=== PATIENT | female | born 1990 | race African-American/Black ===

== ENCOUNTER 2016-05-22 17:17 | Emergency (ER) | payer MEDICAID ==
[~2016-05-22] VITALS: Ht 167.6 cm; Wt 95.5 kg
[2016-05-22 17:19] VITALS: BP 140/80; PULSE 92; RESP 16; TEMP 98.2; O2SAT 98
--- NOTE | 2016-05-22 18:18 | PD ---
HPI Chief Complaint: Cold / Flu Symptoms Time Seen by Provider: 18:10 Travel History International Travel<30 days: No Contact w/Intl Traveler<30days: No Traveled to known affect area: No History of Present Illness HPI 26-year-old female presents for evaluation of cough and congestion and sore throat. Symptoms started 2 weeks ago. The cough is primarily dry but she feels like there is some phlegm stuck in her throat. Denies fevers or chills. No ear pain, recent travel, abdominal pain. She has been using over-the- counter cough and cold medications but symptoms persist. No other complaints at this time. [facility] Past Medical History Medical History: Denies Significant Hx ?: Not LMP: 04/26/2016 Social History Alcohol Use: No Tobacco Use: No Allergies-Medications (Allergen,Severity, Reaction): Coded Allergies: No Known Allergies (Unverified , 05/22/16) Reported Meds & Prescriptions Reported Meds & Active Scripts Active Tessalon Perles (Benzonatate) 100 Mg Cap 100 Mg PO TID PRN Review of Systems Except as stated in HPI: all other systems reviewed are Neg Physical Exam Narrative GENERAL: Well-nourished female in no acute distress SKIN: Warm and dry. HEAD: Atraumatic. Normocephalic. EYES: Pupils equal and round. No scleral icterus. No injection or drainage. ENT: No nasal bleeding or discharge. Mucous membranes pink and moist. No oral pharyngeal erythema or exudate NECK: Trachea midline. No JVD. No lymphadenopathy CARDIOVASCULAR: Regular rate and rhythm. No murmur appreciated. RESPIRATORY: No accessory muscle use. Clear to auscultation. Breath sounds equal bilaterally. No crackles no wheezing or rhonchi. GASTROINTESTINAL: Abdomen soft, non-tender, nondistended. Hepatic and splenic margins not palpable. MUSCULOSKELETAL: No obvious deformities. No edema. NEUROLOGICAL: Awake and alert. No obvious cranial nerve deficits. Motor grossly within normal limits. Normal speech. Data Data Last Documented VS Vital Signs Date Time Temp Pulse Resp B/P Pulse Ox O2 Delivery O2 Flow Rate FiO2 05/22/16 19:33 78 130/68 98 05/22/16 17:19 98.2 16 Orders Chest, Single Ap (05/22/16 ) [facility] Medical Decision Making Medical Screen Exam Complete: Yes Emergency Medical Condition: Yes Medical Record Reviewed: Yes Differential Diagnosis Bronchitis, rhinitis, sinusitis, pneumonia, influenza Narrative Course 26-year-old female with cough and congestion and sore throat for 2 weeks. Physical examination is very reassuring. I suspect a viral upper respiratory infection. Chest x-ray is normal. The patient is being discharged with a cough suppressant medication. As the patient is being discharged she requested something to help with constipation. She is being given a short course of Colace. Diagnosis Primary Impression: Upper respiratory infection Qualified Code: J06.9 - Upper respiratory tract infection, unspecified type Additional Instructions: Medication as needed, follow up with primary care physician, return for any emergent medical conditions. Med/Other Pt SpecificInfo: Prescription(s) given Scripts Docusate Sodium (Colace)100 Mg [id number] Mg PO BID 7 Days Ref 0 Prov:Nancy Barclay MD 05/22/16 Benzonatate (Tessalon Perles)100 Mg [id number] Mg PO TID PRN (COUGH) #30 CAP Ref 0 Prov:Nancy Barclay MD 05/22/16 Disposition: 01 DISCHARGE HOME Condition: Stable Maldonado Corral May 22, 2016 18:18
[2016-05-22] MEDS ORDERED: BENZ100 PO (19:32)
--- NOTE | 2016-05-22 19:32 | RADRPT ---
EXAM DATE/TIME: 05/22/2016 18:33 [place] COMPARISON: No previous studies available for comparison. INDICATIONS : Cough, congestion MEDICAL HISTORY : None. SURGICAL HISTORY : None. ENCOUNTER: Initial ACUITY: 1 month PAIN SCORE: 0/10 LOCATION: Bilateral chest FINDINGS: A single view of the chest demonstrates the lungs to be symmetrically aerated without evidence of mas s, infiltrate or effusion. The cardiomediastinal contours are unremarkable. Osseous structures are intact. CONCLUSION: No acute disease. Ananth Johnson MD on May 22, 2016 at 19:30 Board Certified Radiologist. This report was verified electronically.
[2016-05-22 19:33] VITALS: BP 130/68
[2016-05-22] MEDS ORDERED: COLA100C3 PO (19:37)
== END 2016-05-22 20:15 | disposition home or self-care (01) ==
LOC: NETRI 17:17
DX: J06.9 Acute upper respiratory infection, unspecified (principal)
CPT/HCPCS: 71010; 99283